=== PATIENT | male | born 1970 | race Two or more races ===

== ENCOUNTER 2023-09-13 01:18 | Emergency (ER) | payer OTHER ==
[~2023-09-13] VITALS: Ht 185.4 cm; Wt 134.3 kg
[2023-09-13] MEDS ORDERED: SYNTHROID50 MCG PO (01:34)
[2023-09-13] MEDS ORDERED: GLIPIZIDE XL10 MG PO (01:34)
[2023-09-13] MEDS ORDERED: GLUMETZA500 MG PO (01:34)
[2023-09-13] MEDS ORDERED: COZAAR50 MG PO (01:34)
[2023-09-13 02:41] LABS: HEMATOCRIT 40.7 % (39.0-48.0); HEMOGLOBIN 13.9 g/dL (13-16.00); MEAN CELL VOLUME 86.2 fL (80.0-100.00); MEAN CORPUSCULAR HEMOGLOBIN 29.4 pg (27.00-32.0); MEAN CORPUSCULAR HGB CONC 34.1 g/dl (32.0-36.0); PLATELET COUNT 237 K/uL (150-450); RED BLOOD COUNT 4.72 M/uL (4.00-6.00); RED CELL DISTRIBUTION WIDTH 13.4 % (11.5-14.5)
[2023-09-13 02:51] LABS: PH,URINE 5.5 (5.0-8.0); URINE APPEARANCE Clear; URINE BILIRRUBIN Negative (NEGATIVE); URINE BLOOD Negative; URINE COLOR Yellow; URINE GLUCOSE Negative (NEGATIVE); URINE LEUKOCYTE Negative; URINE NITRATE Negative; URINE PROTEIN Negative (NEGATIVE)
[2023-09-13 02:54] LABS: URINE BACTERIA 6.2 uL (0.0-1933); URINE EPITHELIAL CELLS 2.3 uL (0.0-38.8)
[2023-09-13 03:01] LABS: URINE WBC 1.5 uL (0.0-23.2)
[2023-09-13 03:14] LABS: BILIRUBIN TOTAL 0.53 mg/dL (0.3-1.2); BILIRUBIN,CONJUGATED 0.13 mg/dL (0.0-0.2); BILIRUBIN,UNCONJUGATED 0.4 mg/dL (0.0-0.6); CALCIUM 9.6 mg/dL (8.5-10.1); CREATININE SERUM 0.84 mg/dL (0.70-1.30); GFR 95.58; GLOBULINA 3.4 G/DL (2.4-3.5); POTASSIUM 4.85 mEq/L (3.5-5.1); TOTAL PROTEIN 7.4 gm/dL (6.4-8.2)
[2023-09-13] MEDS ORDERED: NORFLEX100MG PO (04:31)
[2023-09-13] MEDS ORDERED: DICLOFENAC SODI75 MG PO (04:31)
== END 2023-09-13 04:37 | disposition home or self-care (01) ==
LOC: ER 01:18
PROVIDERS: General Practice
DX: R10.9 Unspecified abdominal pain (principal); I10 Essential (primary) hypertension; E11.9 Type 2 diabetes mellitus without complications; Z79.84 Long term (current) use of oral hypoglycemic drugs